=== PATIENT | male | born 1955 | race Caucasian/White ===

== ENCOUNTER → 2016-08-17 | Outpatient (CLI) | payer BC, OTHER ==
--- NOTE | 2016-08-17 22:58 | DI ---
MRI LUMBAR SPINE SCAN WITHOUT IV CONTRAST, 08/17/2016 1:41 PM: Clinical History: Low back pain. Previous Exam: 10/01/2006. Technique: Sagittal and axial T2 weighted; sagittal T1 weighted and T2 STIR; and axial PD. The vertebral bodies are of normal height and size. There is severe disc space narrowing at L5-S1 wit h moderately severe narrowing between L2-3 and L4-5. The L1-2 disc space is normal in height. The cor d terminates at L1, and the conus medullaris is normal. There are bulging but not herniated discs wit hout canal or neural foraminal stenosis from T10-11 through T12-L1. The L1-2 disc space is normal. L2 -3 has a circumferentially bulging but not herniated disc without canal or significant neural foramin al stenosis. There is increased signal intensity consistent with edema of the left superior and poste rolateral margin of the L3 vertebral body without evidence of a fracture. There is also intermediate signal intensity in the posterior and inferior half of the L2 vertebral body that may represent resol ving edema. Because this is at the L2-3 disc space, there may be motion at this level. L3-4 through L 5-S1 all show circumferentially bulging but not herniated discs without canal or significant neural f oraminal stenosis. Mild degenerative arthritic changes are present in the apophyseal joints at L4-5 a nd L5-S1. Readin. There are bulging but not herniated discs without canal or significant neural foraminal stenosis from T10-11 through T12-L1 and from L2-3 through L5-S1. Hyperintensity changes are present in the ling tebral bodies of L2 and L3 at the L2-3 disc space suggesting edema. The possibility of instability at the L2-3 disc space is raised, and upright lateral flexion and extension views may demonstrate this suspected instability. 2. The L1-2 disc space is normal.
== END ==
LOC: MRI 13:37
PROVIDERS: ATTEND Chiropractor
DX: M54.5 Low back pain (principal); M47.814 Spondylosis without myelopathy or radiculopathy, thoracic region; M47.816 Spondylosis without myelopathy or radiculopathy, lumbar region
CPT/HCPCS: 72148

== ENCOUNTER 2016-09-15 14:00 | Emergency (ER) | payer BC, OTHER ==
[2016-09-15 14:29] VITALS: RESP 19; TEMP 96.7
--- NOTE | 2016-09-15 14:42 | PDOC ---
Skin Rash/Insect/Abscess HPI - General Chief Complaint: Laceration / Wound Stated Complaint: PUNCTURE WOUND TO RIGHT THIGH WITH BRAKE LININGS COATER Date Seen by Provider: 09/15/16 Time Seen by Provider: 14:36 Source: POSITIVE: Patient, Spouse Exam Limitations: POSITIVE: No limitations Nurse's Notes Reviewed & Considered: Yes - History of Present Illness Initial Comments: Patient was opening a box with a boxcar weigher when he is medial beside it and stabbed boxcar weigher into his right knee. His bleeding he attempted to stop it with pressure was unsuccessful, then used flour and direct pressure with a bandage and came in for evaluation. Have you received a tetanus shot in the past 10 years?: Yes Body Location Affected: REPORTS: Lower Extremity (R) Timing: REPORTS: Abrupt Duration: 1 hour Severity: Mild Identified Causes: REPORTS: Yes When Exposed: REPORTS: Just Prior to Sx Onset Where Exposed: REPORTS: Work Suspected Etiology: REPORTS: Other (laceration) Similar Symptoms Previously: No Recent Care Received: REPORTS: Denies Any Prior Injuries Related to Current Complaint?: No - Patient Home Medications Home Medications: Home Medications Aspirin [Aspir 81] 81 mg PO DAILY 12/18/10 Blood-Glucose Meter [One Touch Verio Iq] 1 each MC QID #1 each 11/22/13 Blood Sugar Diagnostic [Glucose Test Strip] 1 each IN BID #180 ea 04/15/15 Lisinopril [Zestril] 1 tab PO DAILY #90 tab 02/20/16 Omeprazole 1 cap PO BID #180 cap 02/20/16 Simvastatin 1 tab PO QHS #90 tab 05/27/16 Glipizide/Metformin HCl [Glipizide-Metformin 5-500 Mg] 2 tab PO BID #180 tab 11/15 - Patient Allergies Allergies/Adverse Reactions: Allergies Allergy/AdvReac Type Severity Reaction Status Date / Time sitagliptin phosphate Allergy Intermediate DIFFICULTY Verified 09/15/16 14:15 [From Jose] SWALLOWING Past Medical History - heen HEENT History: Other (please comment) Additional HEENT History: NO TEETH Cardiovascular History: Hypertension, Hyperlipidemia Respiratory History: Denies History Gastrointestinal History: GERD Genitourinary History: Denies History Endocrine History: Type 2 Diabetes (oral) Musculoskeletal History: Arthritis, Other (please comment) Prosthesis or Implant: No Additional Musculoskeletal History: BROKE LEFT ELBOW CHILD. FELL APART COUPLE YRS AGO AND WAS FUSED (DEFORMITY BUT FUNCTIONS) Neurological History: Other (please comment) Additional Neurological History: POSSIBLE STROKE IN JANUARY OF 2016 Blood Disorders: Denies History Psychiatric History: Denies History History of Sexually Transmitted Diseases: No Cancer History: Denies History In Past Year Been Physically Harmed or Verbally Threatened: No (PER PATIENT) History of MDRO: No History of Other Communicable Diseases: No Tobacco Use: Current Every Day Smoker Alcohol Use: None Substance Use Type: None Previous Surgical History: Yes Type / Date of Surgery: CHILD / LEFT ELBOW Anesthesia Reactions: No Malignant Hyperthermia: No Family History of Malignant Hyperthermia: No Significant Family History: No pertinent family hx ROS - Limitations ROS Limitations: No Limitations Constitution: REPORTS: Denies Symptoms Cardiovascular: REPORTS: Denies Cardiac Symptoms Respiratory: REPORTS: Denies Resp Symptoms Neurological: REPORTS: Denies Neuro Symptoms Gastrointestinal: REPORTS: Denies GI Symptoms Endocrine: REPORTS: Denies Symptoms Musculoskeletal: REPORTS: Denies MS Symptoms Genitourinary: REPORTS: Denies Symptoms Eyes: REPORTS: Denies Symptoms ENT: REPORTS: Denies Symptoms Skin: REPORTS: Other (1.5 cm lac R knee) Lympathic: REPORTS: Denies Lympathic Symptoms Immunologic: POSITIVE: Denies Symptoms Psychiatric: POSITIVE: Denies Psych Symptoms Skin Rash/Insect/Abscess Exam - General Appearance General Appearance: REPORTS: Alert, Cooperative, No Acute Distress, No Evidence of Trauma - Skin Skin: REPORTS: Warm, Dry, Normal Color, Other (1.5 cm lac R knee) Skin Location: REPORTS: Generalized Skin Character: REPORTS: Symmetric - Extremities Extremity: Non-Tender: (All Extremities), Normal ROM: (All Extremities), Normal Inspection: (All Extremities) Procedures - Laceration/Wound Repair Did patient have a laceration repair: Yes Site of Laceration/Wound: R. knee Wound Length (cm): 1.5 Wound's Depth, Shape: Into subcutaneous tissue Time of Suture Placement:: 14:41 Distal CMS: Yes Skin Prep: Other (Alcohol) Wound Explored: Clean Wound Debrided: Minimal Wound Repaired With: Faisal Number of [place]: 3 Skin Rash/Abscess Progress - Patient's Progress Status: POSITIVE: Improved MDM / ED Course: Patient was examined. Skin around the wound was cleaned with alcohol, 3 surgical faisal were applied with good skin edge reapproximation and good hemostasis patient tolerated this well. He declined anesthesia for staple placement. He is discharged home with instructions to return in a week for staple removal. - Consult Counseled: POSITIVE: Patient, Family, RE: DX, RE: Need for F/U Patient Care Time - Estimated PCT Patient Care Time (In Minutes): 10 Vital Signs - Recent Vital Signs Vital Signs: Vital Signs (Last 8 hours) Temp Pulse Resp BP Pulse Ox 09/15/16 14:00 96.7 F L 107 H 19 149/101 99 - VS Reviewed Vital Signs Reviewed: Yes Discharge Clinical Impression: Laceration - injury Discharge Disposition: Discharged to Home Condition: Good Patient Instructions Given at Discharge: Laceration (ED)
== END 2016-09-15 14:55 | disposition home or self-care (01) ==
LOC: ER 14:00
DX: S81.011A Laceration without foreign body, right knee, initial encounter (principal); W26.0XXA Contact with knife, initial encounter
CPT/HCPCS: 12001; 99282

== ENCOUNTER → 2016-11-05 | Outpatient (CLI) | payer BC, OTHER ==
--- NOTE | 2016-11-05 10:18 | DI ---
DUPLEX COLOR DOPPLER CAROTID ULTRASOUND, 11/05/2016 7:56 AM: Clinical History: Stroke like symptoms. Previous Exam: None at this facility. Technique: 2D real time imaging is supplemented with duplex color doppler ultrasound imaging. RIGHT CAROTID ARTERY: 2D real time imaging of the right carotid system shows minimal intimal thickening in the common carot id artery with noncalcified small plaques in the anterior and posterior portions of the carotid bulb. The external carotid artery has a normal appearance and there is some intimal thickening at the orig in of the internal carotid artery. Peak systolic velocities through the right common carotid, the ext ernal carotid, and the internal carotid are 133 cm/s, 82 cm/s, and 81 cm/s, respectively. The values for the external and internal carotid arteries correspond to diameter stenoses of 0-49%. The value fo r the common carotid artery corresponds to a diameter stenosis between 50-74%, but much closer to 50% . LEFT CAROTID ARTERY: 2D real time imaging of the left carotid system shows minimal intimal thickening of the left common c arotid artery with a small calcified plaque in the carotid bulb. The left internal and external carot id arteries are normal. Peak systolic velocities through the left common carotid, the external caroti d, and the internal carotid are 154 cm/s, 133 cm/s, and 74 cm/s, respectively. The values for the lef t common carotid artery and the external carotid artery correspond to diameter stenoses of 50-74%, bu t closer to 50%. The value for the left internal carotid artery corresponds to a diameter stenosis of 0-49%. VERTEBRAL ARTERIES: There is antegrade flow through both vertebral arteries Cardiac rhythm is regular. Peak systolic [place] through the visualized portions of the right and left vertebral arteries are 42 cm/s and and a lso 42 cm/s, respectively. Readin. There is no hemodynamically significant stenosis of either carotid system. 2. There is antegrade flow through both vertebral arteries. Cardiac rhythm is regular.
== END ==
LOC: US 07:51
PROVIDERS: ATTEND Family Medicine
DX: R29.90 Unspecified symptoms and signs involving the nervous system (principal); E11.9 Type 2 diabetes mellitus without complications; E78.5 Hyperlipidemia, unspecified; F17.210 Nicotine dependence, cigarettes, uncomplicated
CPT/HCPCS: 93880

== ENCOUNTER 2016-11-30 10:34 | Emergency (ER) | payer BC, OTHER ==
[2016-11-30 10:44] VITALS: RESP 16; TEMP 96.3
[2016-11-30] MEDS ORDERED: NORMAL SALINE 10 ML SYRINGE FLUSH IVP PRN (10:54)
[2016-11-30] MEDS ORDERED: Sodium Chloride 0.9% 1,000 ML PRIMARY IV ONE (10:54)
[2016-11-30 11:12] LABS: BASOPHILS # (AUTO) 0.06 10*3/UL; BASOPHILS % (AUTO) 0.5 % (0-1); EOSINOPHILS # (AUTO) 0.07 10*3/UL; EOSINOPHILS % (AUTO) 0.6 % (0-8); HEMATOCRIT 45.3 % (42.0-52.0); HEMOGLOBIN 15.2 g/dL (14.0-18.0); LYMPHOCYTES # (AUTO) 1.96 10*3/uL; MEAN CORPUSCULAR HEMOGLOBIN 28.6 PG (27-31); MEAN CORPUSCULAR HGB CONC 33.6 g/dL (33-37); MEAN CORPUSCULAR VOLUME 85.3 FL (80-90); MEAN PLATELET VOLUME 8.5 FL (7.4-12.2); MONOCYTES # (AUTO) 0.82 10*3/UL (0.3-0.8); MONOCYTES % (AUTO) 7.3 % (5-15); NEUTROPHILS # (AUTO) 8.29 10*3/UL; NEUTROPHILS % (AUTO) 73.8 % (50-80); RED BLOOD COUNT 5.31 10^6/uL (4.70-6.10)
[2016-11-30 11:14] LABS: BILIRUBIN,URINE NEGATIVE (NEG); COLOR,URINE YELLOW; NITRATE,URINE NEGATIVE (NEG); OCCULT BLOOD,URINE NEGATIVE (NEG); PH,URINE 5.5 (5.0-8.5); PLATELET MORPHOLOGY COMMENT NORMAL MORPHOLOGY (NORM); PROTEIN,URINE NEGATIVE (NEG); RBC MORPHOLOGY COMMENT NORMAL MORPHOLOGY (NORM); UROBILINOGEN,URINE 0.2 EU/dL (0.2); WBC MORPHOLOGY COMMENT NORMAL MORPHOLOGY (NORM)
[2016-11-30 11:20] LABS: BLOOD UREA NITROGEN 15 mg/dL (7-22); BUN/CREATININE RATIO 21.42 (6-20); CALCIUM 9.6 mg/dL (8.7-10.7); EST GLOMERULAR FILTRATION > 60 (>60 ml/min/1.73m(2)); LIPASE 47 IU/L (23-300); SERUM ALBUMIN 4.3 g/dL (3.5-4.8)
[2016-11-30 11:32] LABS: CLARITY,URINE CLEAR (CLEAR); GLUCOSE, URINE (UA) >=1000 mg/dL (NEG); URINE SAMPLE TYPE CLEAN CATCH URINE
--- NOTE | 2016-11-30 12:51 | DI ---
CT ABD W/CN AND PELVIS W/CN,11/30/2016 10:55 AM: Clinical History: Abdominal pain Previous Exam: None at this facility. Findings: Multiple helically acquired CT images are obtained through the abdomen and pelvis following the intra venous administration of 75 cc of Isovue 300, and demonstrates clear lung bases. There is mild diffuse fatty infiltration of the liver. There are multiple hypodense masses too jacqui us to count which do not appear to represent simple cysts. There are a few layering stones within the gallbladder. The spleen, adrenals, kidneys and pancreas are unremarkable. The urinary bladder is unremarkable. There is a trace amount of free fluid within the deep pelvis. Moderate stool is seen throughout the distal colon. Adjacent to the transverse colon anteriorly, ther e is an isodense mass with surrounding fat stranding abutting the left anterior abdominal wall. Mild degenerative changes of the spine are seen. There is no subdiaphragmatic free air. The stomach is not well evaluated as it is decompressed. There is a single renal parenchymal stone wi thin the inferior pole the left kidney. Impression: 1. Multiple hepatic hypodensities too numerous to count. These are worrisome for metastatic disease. 2. Isodense mass within the anterior mesentery of the left upper quadrant measuring 5.5 cm in diamete r. This could represent an inflammatory condition. This could also represent malignancy. Consider ult rasound-guided biopsy.
--- NOTE | 2016-11-30 13:24 | DI ---
US ABDOMEN LIMITED,11/30/2016 12:36 PM: Clinical History: Abnormal mass within the left anterior abdominal wall. Previous Exam: None at this facility. Findings: Multiple man scale and color Doppler sonographic images are obtained through the mass in question in the left upper abdomen. This mass measures 5.8 x 5.0 x 3.6 cm without any cystic areas. This is isoe choic to the adjacent musculature and mesenteric fat. Impression: Abnormal mass seen on CT corresponds with a solid isoechoic 5.8 x 5.0 x 3.6 cm mass.
--- NOTE | 2016-11-30 16:15 | PDOC ---
Abdomen/Flank HPI - General Chief Complaint: General Medical Stated Complaint: FELT POP IN LEFT SIDE Date Seen by Provider: 11/30/16 Time Seen by Provider: 10:35 Source: POSITIVE: Patient, Spouse, RN/MD Exam Limitations: POSITIVE: No limitations Nurse's Notes Reviewed & Considered: Yes - History of Present Illness Initial Comments: The patient is a 61-year-old male who presents to the emergency room ambulatory with his . Patient states that for the past 2-3 weeks he's had some discomfort in the left upper abdominal area and left paraumbilical area. He describes the discomfort as "like an ache or pulled muscle". He states that his discomfort became somewhat worse last night, and especially over the past 3 hours. Past medical history is significant in that patient has a history of skin cancer, and his states that she believes the type of skin cancer is squamous cell carcinoma. He recently has had a skin lesion excised from the right side of his scalp. 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 History of type II diabetes mellitus and hypertension. Patient has not had any abdominal surgery. Patient denies any recent fevers or chills, melena, hematochezia, hematemesis, dysuria, hematuria, nausea, vomiting or diarrhea. Body Location Affected: REPORTS: Abdomen Timing: REPORTS: Gradual, Getting Worse Duration: >1 week (For the past 2-3 weeks) Severity: Moderate Quality: REPORTS: "Pain" Abdominal Pain Onset Location: REPORTS: LUQ, Periumbilical (Left) Abdominal Pain Radiation: REPORTS: No radiation Context: REPORTS: None Modifying Factors: improves with: Movement (Sometimes exacerbated by portion of his torso) Associated Symptoms: REPORTS: Denies symptoms Similar Symptoms Previously: No Recent Care Received: REPORTS: Recently Seen, Treated by MD, Surgery (Recent excision of skin cancer from the right side of his head, probably squamous cell carcinoma, according to .) Any Prior Injuries Related to Current Complaint?: No - Patient Home Medications Home Medications: Home Medications Aspirin [Aspir 81] 81 mg PO DAILY 12/18/10 Lisinopril [Zestril] 1 tab PO DAILY #90 tab 02/20/16 Simvastatin 1 tab PO QHS #90 tab 05/27/16 Blood Sugar Diagnostic [Contour Next] 1 each MC TID #180 strip 10/21/16 Blood-Glucose Meter [Contour Next] 1 each MC TID #1 each 10/21/16 Clif[place], Insulin Disposable [Clifton] 1 each MC TID #180 unit 10/21/16 Loratadine [Claritin] 1 tab PO DAILY tab 11/04/16 Triamcinolone Acetonide 15 gm TOPICAL TID PRN tube 11/04/16 Dapagliflozin Propanediol [Farxiga] 10 mg PO QD #30 tab 11/09/16 Esomeprazole Magnesium 1 cap PO QD #90 cap 11/09/16 Metformin HCl 1 tab PO BID #180 tab 11/09/16 Pioglitazone HCl [Actos] 15 mg PO DAILY #90 tab 11/09/16 Potassium 99 mg PO DAILY 11/30/16 - Patient Allergies Allergies/Adverse Reactions: Allergies Allergy/AdvReac Type Severity Reaction Status Date / Time sitagliptin phosphate Allergy Intermediate DIFFICULTY Verified 11/30/16 10:41 [From Jose] SWALLOWING/TONGUE SWELLING Past Medical History - heen HEENT History: Other (please comment) Additional HEENT History: NO TEETH Cardiovascular History: Hypertension, Hyperlipidemia Respiratory History: Denies History Gastrointestinal History: GERD Genitourinary History: Denies History Endocrine History: Type 2 Diabetes (oral) Musculoskeletal History: Arthritis, Other (please comment) Prosthesis or Implant: No Additional Musculoskeletal History: BROKE LEFT ELBOW CHILD. FELL APART COUPLE YRS AGO AND WAS FUSED (DEFORMITY BUT FUNCTIONS) Neurological History: Other (please comment) Additional Neurological History: POSSIBLE STROKE IN JANUARY OF 2016 Blood Disorders: Denies History Psychiatric History: Denies History History of Sexually Transmitted Diseases: No Cancer History: Denies History In Past Year Been Physically Harmed or Verbally Threatened: No History of MDRO: No History of Other Communicable Diseases: No Tobacco Use: Current Every Day Smoker Alcohol Use: None Substance Use Type: None Previous Surgical History: Yes Type / Date of Surgery: CHILD / LEFT ELBOW. NASAL SURGERY Anesthesia Reactions: No Malignant Hyperthermia: No Significant Family History: No pertinent family hx Past Medical History Reviewed: Reviewed - No Changes ROS - Limitations ROS Limitations: No Limitations Constitution: REPORTS: Denies Symptoms Cardiovascular: REPORTS: Denies Cardiac Symptoms Respiratory: REPORTS: Denies Resp Symptoms Neurological: REPORTS: Denies Neuro Symptoms Gastrointestinal: REPORTS: Abdominal Pain Endocrine: REPORTS: Denies Symptoms Musculoskeletal: REPORTS: Denies MS Symptoms Genitourinary: REPORTS: Denies Symptoms Eyes: REPORTS: Denies Symptoms ENT: REPORTS: Denies Symptoms Skin: REPORTS: Skin Lesions (Site of excision his skin lesion, reportedly squamous cell carcinoma, right upper scalp. Patient has a dressing over side of excision. No signs of infection) Lympathic: REPORTS: Denies Lympathic Symptoms Immunologic: POSITIVE: Denies Symptoms Psychiatric: POSITIVE: Denies Psych Symptoms Abdominal/Flank Pain PE - General Appearance General Appearance: POSITIVE: Alert, Cooperative, No Acute Distress, No Evidence of Trauma - HEENT HEENT: POSITIVE: Eyes Inspection Nml, Ears Inspection Nml, Nose Inspection Nml, Oral/Dental Inspect. Nml, Pharynx Inspect. Nml, PERRL, EOMI. NEGATIVE: Head Inspection Nml (Site of excision of skin lesion right upper scalp) - Neck Neck: POSITIVE: Normal Inspection, No Apparent Injury - Respiratory Respiratory: POSITIVE: No Respiratory Distress, Breath Sounds Normal, Chest Non- Tender - Cardiovascular Cardiovascular: POSITIVE: Regular Rate and Rhythm, Heart Sounds Normal, Equal Pulses, Strong Pulses Peripheral Pulses: Radial (R): 2+, Radial (L): 2+ - Chest Chest: POSITIVE: Non Tender - Abdomen Abdomen: Soft: (All Quadrants), Normal Bowel Sounds: (All Quadrants), Denies Tenderness: (LLQ), (RLQ), (RUQ), No Splenomegaly: (All Quadrants), No Hepatomegaly: (All Quadrants), No Guarding: (All Quadrants), No Rebound: (All Quadrants), No Palpable Pulse: (All Quadrants), No Palpabale Mass: (All Quadrants), No Distention: (All Quadrants), No Rigidity: (All Quadrants), Tenderness Noted: (LUQ) (mild) Additional Abdominal Details: Abdominal examination shows bowel sounds to be active. Patient indicates abdominal discomfort left upper abdomen and left paraumbilical area. Abdomen is soft. Patient does complain of some mild exacerbation of his discomfort on firm deep direct palpation of the left upper quadrant and left paraumbilical area. No masses or organomegaly or rebound. - Back Back: POSITIVE: Normal Inspection. 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 There are also multiple hypodense lesions in the liver concerning for metastatic disease. Ultrasound of the left upper abdominal area shows a 5.8 x 5.0 x 3.6 cm mass without any cystic areas. This mass is isoechoic to the adjacent musculature and mesenteric fat. Lab Results Reviewed: Yes Lab Results:: Laboratory Results 11/30/16 Range/Units 11:04 WBC 11.23 H (4.8-10.8) 10^3/uL RBC 5.31 (4.70-6.10) 10^6/uL Hgb 15.2 (14.0-18.0) g/dL Hct 45.3 (42.0-52.0) % MCV 85.3 (80-90) FL MCH 28.6 (27-31) PG MCHC 33.6 (33-37) g/dL RDW Std Deviation 41.6 (39-50) fL RDW Coeff of [place] 13.4 (11.5-14.5) % Plt Count 331 (140-350) 10*3/uL MPV 8.5 (7.4-12.2) FL Immature Gran % (Auto) 0.3 (0-5) % Neut % (Auto) 73.8 (50-80) % Lymph % (Auto) 17.5 (10-50) % [place] % (Auto) 7.3 (5-15) % Eos % (Auto) 0.6 (0-8) % Baso % (Auto) 0.5 (0-1) % Immature Gran # (Auto) 0.03 10*3/UL Neut # (Auto) 8.29 10*3/UL Lymph # (Auto) 1.96 10*3/uL [place] # (Auto) 0.82 H (0.3-0.8) 10*3/UL Eos # (Auto) 0.07 10*3/UL Baso # (Auto) 0.06 10*3/UL WBC Morphology Comment Normal morphology (NORM) Plt Morphology Comment Normal morphology (NORM) RBC Morph Comment Normal morphology (NORM) Sodium 135 (135-145) meq/L Potassium 4.7 (3.8-5.2) meq/L Chloride 101 (98-112) meq/L Carbon Dioxide 20 L (23-33) meq/L Anion Gap 14 (5-20) BUN 15 (7-22) mg/dL Creatinine 0.7 (0.70-1.50) mg/dL Estimated GFR > 60 (>60 ml/min/1.73m(2)) BUN/Creatinine Ratio 21.42 H (6-20) Glucose 160 H (78-110) mg/dL Calculated Osmolality 283.0 (267-292) mOsm/kg Calcium 9.6 (8.7-10.7) mg/dL Total Bilirubin 0.6 (0.3-1.2) mg/dL AST 23 (21-57) IU/L ALT 40 (21-72) IU/L Alkaline Phosphatase 126 (38-126) IU/L Total Protein 7.8 (6.1-8.0) g/dL Albumin 4.3 (3.5-4.8) g/dL Globulin 3.5 (2.50-4.10) g/dL Albumin/Globulin Ratio 1.20 L (1.3-2.0) mg/g Amylase 43 (30-110) U/L Lipase 47 (23-300) IU/L Ur Collection Type Clean catch urine Urine Color Yellow Urine Clarity Clear (CLEAR) Urine pH 5.5 (5.0-8.5) Ur Specific [place] 1.021 (1.005-1.030) Urine Protein Negative (NEG) mg/dl Urine Glucose (UA) >=1000 (NEG) mg/dL Urine Ketones 15 (NEG) Urine Occult Blood Negative (NEG) Urine Nitrate Negative (NEG) Urine Bilirubin Negative (NEG) Urine Urobilinogen 0.2 (0.2) EU/dL Ur Leukocyte Esterase Negative (NEG) Ur Culture Indicated? Culture not set - Patient's Progress Pain Medication Addressed: POSITIVE: Yes (Patient presently taking Tylenol. Declines any other analgesia.), Patient Refused Re-examine Time: 13:45 Re-Examine Comment: Results of CT scan of abdomen and pelvis and limited abdominal ultrasound discussed with patient and his . I advised both that I am concerned that the abdominal mass may represent a malignancy, possibly secondary to his squamous cell carcinoma of the skin. I discussed these findings with the patient's primary care provider, Dr. Terrazas, and patient will follow-up with him for further evaluation, treatment and referral. Advised patient that he will probably have to have a ultrasound graphically guided needle biopsy. Status: POSITIVE: Unchanged, Re-Examined - Consult Consult (If Yes, Name of Consulting MD & Time Called): Yes (Dr. Terrazas, patient's primary physician, [id number].) Consulting MD will see pt:: POSITIVE: In Office Counseled: POSITIVE: Patient, Family, RE: Lab Results, RE: Radiology Results, RE : DX, RE: Need for F/U Patient Care Time - Estimated PCT Patient Care Time (In Minutes): 65 Vital Signs - Recent Vital Signs Vital Signs: Vital Signs (Last 8 hours) Temp Pulse Resp BP Pulse Ox 11/30/16 14:05 79 16 98/54 96 11/30/16 10:40 96.3 F L 115 H 16 160/104 96 - VS Reviewed Vital Signs Reviewed: Yes Discharge Clinical Impression: Abdominal mass, left upper quadrant Discharge Disposition: Discharged to Home Condition: Stable Patient Instructions Given at Discharge: Soft Tissue Mass (ED) Additional Instructions: You have a mass in the left upper part of your abdomen. This is probably what has been causing you your abdominal pain. I am concerned that this mass might represent a cancer, possibly a metastatic lesion due to your squamous cell carcinoma of the skin. You need to have this followed up. I spoke with Dr. Terrazas, your primary care provider. Please make an appointment with him as soon as possible so that he can coordinate your further evaluation and treatment. You will need to have this mass biopsied. Please continue Tylenol for discomfort. Return here anytime if your condition worsens in any way, or if we keep be of any further service whatsoever. Follow Up With: ANITRA TERRAZAS [Primary Care Provider] - (Follow-up with Dr. Terrazas for further evaluation and treatment. Return here anytime if condition worsens in any way.)
== END 2016-11-30 14:06 | disposition home or self-care (01) ==
LOC: ER 10:34
DX: R19.02 Left upper quadrant abdominal swelling, mass and lump (principal); E11.9 Type 2 diabetes mellitus without complications; I10 Essential (primary) hypertension
CPT/HCPCS: 74177; 76705; 80053; 81003; 82150; 83690; 85025; 96360; 96361; 99283; J7030

== ENCOUNTER → 2016-12-01 | Outpatient (CLI) | payer BC, OTHER | LOC: LAB 09:39 | PROVIDERS: ATTEND Radiology Diagnostic Radiology | DX: Z01.812 Encounter for preprocedural laboratory examination (principal); R10.84 Generalized abdominal pain | CPT/HCPCS: 36415; 82565; 84520 ==

== ENCOUNTER → 2016-12-03 | Outpatient (CLI) | payer BC, OTHER | LOC: US 14:48 | PROVIDERS: ATTEND Family Medicine | DX: R19.02 Left upper quadrant abdominal swelling, mass and lump (principal); Z85.828 Personal history of other malignant neoplasm of skin | CPT/HCPCS: 76942 ==

== ENCOUNTER 2016-12-29 15:55 | Emergency (ER) | payer BC, OTHER ==
[2016-12-29] MEDS ORDERED: NORMAL SALINE 10 ML SYRINGE FLUSH IVP PRN (16:09)
[2016-12-29] MEDS ORDERED: Sodium Chloride 0.9% 1,000 ML PRIMARY IV ONE ×3 (16:10→21:06)
[2016-12-29] MEDS: ONDANSETRON 4 MG/2 ML VIAL IVP ONE ×2 (16:10→17:30)
[2016-12-29 16:27] LABS: BASOPHILS # (AUTO) 0.05 10*3/UL; BASOPHILS % (AUTO) 0.3 % (0-1); EOSINOPHILS # (AUTO) 0.01 10*3/UL; EOSINOPHILS % (AUTO) 0.1 % (0-8); HEMATOCRIT 38.5 % (42.0-52.0); HEMOGLOBIN 12.8 g/dL (14.0-18.0); LYMPHOCYTES # (AUTO) 1.56 10*3/uL; MEAN CORPUSCULAR HEMOGLOBIN 28.1 PG (27-31); MEAN CORPUSCULAR HGB CONC 33.2 g/dL (33-37); MEAN CORPUSCULAR VOLUME 84.4 FL (80-90); MEAN PLATELET VOLUME 8.7 FL (7.4-12.2); MONOCYTES # (AUTO) 1.05 10*3/UL (0.3-0.8); MONOCYTES % (AUTO) 5.9 % (5-15); NEUTROPHILS # (AUTO) 14.96 10*3/UL; NEUTROPHILS % (AUTO) 84.4 % (50-80); RED BLOOD COUNT 4.56 10^6/uL (4.70-6.10)
[2016-12-29 16:30] LABS: PLATELET MORPHOLOGY COMMENT NORMAL MORPHOLOGY (NORM); RBC MORPHOLOGY COMMENT NORMAL MORPHOLOGY (NORM); WBC MORPHOLOGY COMMENT NORMAL MORPHOLOGY (NORM)
[2016-12-29 16:37] LABS: BLOOD UREA NITROGEN 35 mg/dL (7-22); CALCIUM 11.2 mg/dL (8.7-10.7); EST GLOMERULAR FILTRATION > 60 (>60 ml/min/1.73m(2))
--- NOTE | 2016-12-29 16:51 | PDOC ---
Nausea/Vomiting/Diarrhea HPI - General Chief Complaint: Nausea / Vomiting / Diarrhea Stated Complaint: BLACK VOMIT Date Seen by Provider: 12/29/16 Time Seen by Provider: 16:30 - History of Present Illness Initial Comments: This patient is a unfortunate 61-year-old gentleman who was diagnosed with a metastatic squamous cell lung cancer about 2 weeks ago. He came in the emergency department at that time complaining about abdominal pain and had a CT scan performed which showed a sided abdominal mass. His mass was biopsied and also a nonhealing sore in the posterior aspect of his head was taken care of subsequently by a roll wrapper in the show metastatic lung cancer. He started radiation therapy for this abdominal mass for paliation about 7-10 days ago and has been doing okay. Unfortunately today started to develop some vomiting with black emesis. He came to the emergency department and clearly had coffee- ground emesis that was heme positive. He had not been having any stool over last couple days had not been able to eat anything over last couple of days as well and had substantial abdominal pain... - Patient Home Medications Home Medications: Home Medications Aspirin [Aspir 81] 81 mg PO DAILY 12/18/10 Lisinopril [Zestril] 1 tab PO DAILY #90 tab 02/20/16 Simvastatin 1 tab PO QHS #90 tab 05/27/16 Blood Sugar Diagnostic [Contour Next] 1 each MC TID #180 strip 10/21/16 Blood-Glucose Meter [Contour Next] 1 each MC TID #1 each 10/21/16 Chana, Insulin Disposable [Chana] 1 each MC TID #180 unit 10/21/16 Loratadine [Claritin] 1 tab PO DAILY tab 11/04/16 Triamcinolone Acetonide 15 gm TOPICAL TID PRN tube 11/04/16 Dapagliflozin Propanediol [Farxiga] 10 mg PO QD #30 tab 11/09/16 Esomeprazole Magnesium 1 cap PO QD #90 cap 11/09/16 Metformin HCl 1 tab PO BID #180 tab 11/09/16 Potassium 99 mg PO DAILY 11/30/16 Pioglitazone HCl [Actos] 15 mg PO BID #180 tab 12/03/16 Tramadol HCl 2 tab PO Q4-6H #90 tab 12/03/16 Bupropion HCl [Wellbutrin Sr] 1 tab PO BID #60 tab 12/10/16 Fentanyl 12 mcgh TRANSDERM Q72H #1 box 12/10/16 - Patient Allergies Allergies/Adverse Reactions: Allergies Allergy/AdvReac Type Severity Reaction Status Date / Time sitagliptin phosphate Allergy Intermediate DIFFICULTY Verified 12/29/16 16:25 [From Jose] SWALLOWING/TONGUE SWELLING codeine AdvReac Intermediate ALT MENTAL Verified 12/29/16 16:25 STATUS Past Medical History - heen HEENT History: Other (please comment) Additional HEENT History: NO TEETH Cardiovascular History: Hypertension, Hyperlipidemia Respiratory History: Denies History Gastrointestinal History: GERD Genitourinary History: Denies History Endocrine History: Type 2 Diabetes (oral) Musculoskeletal History: Arthritis, Other (please comment) Prosthesis or Implant: No Additional Musculoskeletal History: BROKE LEFT ELBOW CHILD. FELL APART COUPLE YRS AGO AND WAS FUSED (DEFORMITY BUT FUNCTIONS) Neurological History: Other (please comment) Additional Neurological History: POSSIBLE STROKE IN JANUARY OF 2016 Blood Disorders: Denies History Psychiatric History: Denies History History of Sexually Transmitted Diseases: No Cancer History: Denies History History of MDRO: No History of Other Communicable Diseases: No Alcohol Use: None Substance Use Type: None Previous Surgical History: Yes Type / Date of Surgery: CHILD / LEFT ELBOW. NASAL SURGERY Anesthesia Reactions: No Malignant Hyperthermia: No Significant Family History: No pertinent family hx Past Medical History Reviewed: Reviewed - No Changes ROS - Limitations ROS Limitations: No Limitations Constitution: REPORTS: Weakness Cardiovascular: REPORTS: Denies Cardiac Symptoms Respiratory: REPORTS: Denies Resp Symptoms Neurological: REPORTS: Denies Neuro Symptoms Endocrine: REPORTS: Fatigue Nausea/Vomiting/Diarrhea Exam - General Appearance General Appearance: POSITIVE: Alert, Cooperative, No Acute Distress - HEENT HEENT: POSITIVE: Head Inspection Nml, Eyes Inspection Nml, Ears Inspection Nml - Respiratory Respiratory: POSITIVE: Breath Sounds Normal - Cardiovascular Cardiovascular: POSITIVE: Regular Rate and Rhythm, Heart Sounds Normal - Abdomen Additional Abdominal Details: Patient has some tinkling bowel sounds he also has substantial abdominal pain diffusely with palpation but more so in the left midabdomen. NG tube is in place and there is coffee-ground and dark maroon appearing fluid being aspirated. - Neurological / Psychological Neurological: POSITIVE: Affect Apporpriate, Oriented X3 N/V/D Progress - Results Reviewed by me Xrays/CTs/US Reviewed by me: Yes Radiology Findings: Small bowel obstruction and multiple evidence of metastasis Lab Results:: Laboratory Results 12/29/16 12/29/16 12/29/16 Range/Units 16:20 17:31 20:46 WBC 17.71 H (4.8-10.8) 10^3/uL RBC 4.56 L (4.70-6.10) 10^6/uL Hgb 12.8 L 11.6 L (14.0-18.0) g/dL Hct 38.5 L 34.9 L (42.0-52.0) % MCV 84.4 (80-90) FL MCH 28.1 (27-31) PG MCHC 33.2 (33-37) g/dL RDW Std Deviation 40.4 (39-50) fL RDW Coeff of Celeste 13.4 (11.5-14.5) % Plt Count 541 H (140-350) 10*3/uL MPV 8.7 (7.4-12.2) FL Immature Gran % (Auto) 0.5 (0-5) % Neut % (Auto) 84.4 H (50-80) % Lymph % (Auto) 8.8 L (10-50) % Tyler % (Auto) 5.9 (5-15) % Eos % (Auto) 0.1 (0-8) % Baso % (Auto) 0.3 (0-1) % Immature Gran # (Auto) 0.08 10*3/UL Neut # (Auto) 14.96 10*3/UL Lymph # (Auto) 1.56 10*3/uL Tyler # (Auto) 1.05 H (0.3-0.8) 10*3/UL Eos # (Auto) 0.01 10*3/UL Baso # (Auto) 0.05 10*3/UL WBC Morphology Comment Normal morphology (NORM) Plt Morphology Comment Normal morphology (NORM) RBC Morph Comment Normal morphology (NORM) Sodium 134 L (135-145) meq/L Potassium 5.1 (3.8-5.2) meq/L Chloride 95 L (98-112) meq/L Carbon Dioxide 24 (23-33) meq/L Anion Gap 15 (5-20) BUN 35 H (7-22) mg/dL Creatinine 1.0 (0.70-1.50) mg/dL Estimated GFR > 60 (>60 ml/min/1.73m(2)) BUN/Creatinine Ratio 35.00 H (6-20) Glucose 262 H (78-110) mg/dL Calculated Osmolality 294.0 H (267-292) mOsm/kg Calcium 11.2 H (8.7-10.7) mg/dL Total Bilirubin 0.5 (0.3-1.2) mg/dL AST 30 (21-57) IU/L ALT 49 (21-72) IU/L Alkaline Phosphatase 265 H (38-126) IU/L Total Protein 7.6 (6.1-8.0) g/dL Albumin 4.0 (3.5-4.8) g/dL Globulin 3.6 (2.50-4.10) g/dL Albumin/Globulin Ratio 1.10 L (1.3-2.0) mg/g Ur Collection Type Void Urine Color Yellow Urine Clarity Clear (CLEAR) Urine pH 5.0 (5.0-8.5) Ur Specific Calhan 1.015 (1.005-1.030) Urine Protein Negative (NEG) mg/dl Urine Glucose (UA) >=1000 (NEG) mg/dL Urine Ketones 15 (NEG) Urine Occult Blood Negative (NEG) Urine Nitrate Negative (NEG) Urine Bilirubin Small (NEG) Urine Urobilinogen 0.2 (0.2) EU/dL Ur Leukocyte Esterase Negative (NEG) Ur Culture Indicated? Culture not set EKG Interpreted/Reviewed By Me:: Yes - Patient's Progress MDM / ED Course: Patient was admitted to the emergency department he had an NG tube placed and has had significant potential amounts of coffee-ground emesis aspirated from his stomach. He had typical labs done which did show a bit of a drop in his hemoglobin from previous tests. He had acute abdominal series which showed possible small bowel obstruction. CT scan of the abdomen and pelvis was performed this does show a small bowel obstruction though there is no official radiology over read at this point. He continues to have a fairly substantial amount of black drainage and has dropped his hemoglobin another point over last couple of hours. I discussed his case with general surgeon metal furniture polisher and district court judge at [facility] [place] they recommended transfer through the emergency department at [facility] for triage whether the patient needs to go to the floor versus the ICU. Patient was given IV fluid boluses and IV PPI therapy otherwise no substantial medication was administered.. Patient Care Time - Estimated PCT Patient Care Time (In Minutes): 45 Vital Signs - Recent Vital Signs Vital Signs: Vital Signs (Last 8 hours) Temp Pulse Pulse Pulse Resp BP BP 12/29/16 20:47 119 H 116/72 12/29/16 20:00 126 H 119/51 12/29/16 19:31 97.1 F 118 H 20 104/64 12/29/16 18:48 119 H 104/62 12/29/16 18:18 126 H 20 117/68 12/29/16 16:09 95.9 F L 129 H 16 129/77 12/29/16 16:00 130 H 143 H 115/77 BP Pulse Ox 12/29/16 20:47 12/29/16 20:00 12/29/16 19:31 94 12/29/16 18:48 12/29/16 18:18 93 12/29/16 16:09 94 12/29/16 16:00 50/32 - VS Reviewed Vital Signs Reviewed: Yes Discharge Clinical Impression: Intestinal obstruction Qualifiers: Intestinal obstruction type: unspecified Qualifier Code: (K56.60) Unspecified intestinal obstruction Gastrointestinal hemorrhage Qualifiers: GI bleed type/associated pathology: unspecified gastrointestinal hemorrhage type Qualifier Code: (K92.2) Gastrointestinal hemorrhage, unspecified Malignant neoplasm of lung Qualifiers: Lung location: unspecified part of lung Discharge Disposition: Transferred to Tertiary Care Facility Condition: Serious Date Decision to Transfer to Another Facility: 12/29/16 Time Decision to Transfer to Another Facility: 21:18
[2016-12-29 17:36] LABS: CLARITY,URINE CLEAR (CLEAR); COLOR,URINE YELLOW; PROTEIN,URINE NEGATIVE (NEG); URINE SAMPLE TYPE VOID
[2016-12-29 17:37] LABS: BILIRUBIN,URINE SMALL (NEG); NITRATE,URINE NEGATIVE (NEG); OCCULT BLOOD,URINE NEGATIVE (NEG); UROBILINOGEN,URINE 0.2 EU/dL (0.2)
[2016-12-29 17:39] LABS: GLUCOSE, URINE (UA) >=1000 mg/dL (NEG)
--- NOTE | 2016-12-29 17:52 | DI ---
HISTORY: Feculent vomiting. FINDINGS: Examination reveals multiple air filled distended loops of mostly small bowel with air/fl uid levels and no free air in the peritoneal cavity, probably due to mechanical bowel obstruction. The heart is within normal limits with slight tortuosity of the dorsal aorta. There is an area of i ncreased density in the right hilar region with bands of subsegmental atelectases which requires furt her investigation to exclude possible malignancy. The lung ambriz are otherwise essentially clear. IMPRESSION: 1. Probable mechanical bowel obstruction. Clinical correlation and follow up examination is suggeste d to exclude possible adynamic ileus. 2. Increased right hilar density with bands of subsegmental atelectasis. The findings require furthe r evaluation to exclude possible malignancy. Clinical correlation is requested.
--- NOTE | 2016-12-29 19:15 | DI ---
HISTORY: Hematemesis. Stage IV lung cancer. TECHNIQUE: Contrast enhanced images of the abdomen and pelvis were obtained and submitted for interp retation. FINDINGS: Limited sections of the lung bases demonstrate bibasilar ill-defined ground glass opacitie s. There is a tiny nodule in the periphery of the left lung on series 2 image 15 measuring 5 mm. There are multiple nodules throughout the liver reminiscent of metastatic disease. The spleen is aaron ssly unremarkable. There are gallstones. The pancreas is atrophied. There is an NG tube noted. The distal esophagus is thickened. Both kidneys enhance symmetrically. There is bilateral perinephric edema. There is a subcentimeter calculus in the lower pole of the left kidney. The aorta and IVC demonstrate no acute findings. There is atherosclerotic calcification of the aorta . There is moderate to severe constipation. There is thickening of the sigmoid colon. The large bowel is collapsed. There is a normal-appearing appendix. The small bowel loops appear thickened and dilated. The point of transition is not clearly identifie d. There is an irregular masslike lesion measuring approximately 5.6 cm along the left mid mesentery which could represent a point of transition. There are multiple enlarged mesenteric nodes. There is no free air to suggest perforation. There is thickening of the omentum suggestive of carcin omatosis peritonei. There is free fluid within the pelvis. Urinary bladder is distended. The prostate gland is slightly prominent. Scattered sclerotic foci favored to represent bone islands although bone metastases not excluded. Th ere is narrowing at L5-S1 with vacuum phenomenon. There is endplate sclerosis at L2-3. IMPRESSION: 1. Findings consistent with metastatic disease in the liver. 2. Cholelithiasis. Recommend ultrasound correlation. 3. Thickened, dilated small bowel loops with a point of transition not clearly identified. There is an irregular masslike lesion measuring approximately 5.6 cm along the left mid mesentery which could represent a point of transition. 4. 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 5. Slightly prominent prostate with free fluid in the pelvis. 6. Scattered sclerotic foci may represent bone islands, but bone metastasis is not excluded on the ba sis of this examination.
[2016-12-29 20:49] LABS: HEMATOCRIT 34.9 % (42.0-52.0); HEMOGLOBIN 11.6 g/dL (14.0-18.0)
[2016-12-29] MEDS ORDERED: Pantoprazole Inj 40 MG in Normal Saline Flush 10 ML IVP ONE (21:06)
[2016-12-29 22:55] VITALS: RESP 18; TEMP 98.3
== END 2016-12-29 21:38 | disposition short-term general hospital (02) ==
LOC: ER 15:55
DX: K92.2 Gastrointestinal hemorrhage, unspecified (principal); R10.84 Generalized abdominal pain; K56.69 Other intestinal obstruction; E11.9 Type 2 diabetes mellitus without complications; E78.5 Hyperlipidemia, unspecified; I10 Essential (primary) hypertension; C34.82 Malignant neoplasm of overlapping sites of left bronchus and lung; C78.7 Secondary malignant neoplasm of liver and intrahepatic bile duct; C79.2 Secondary malignant neoplasm of skin
CPT/HCPCS: 36415; 74022; 74177; 80053; 81003; 85014; 85018; 85025; 96361; 96374; 96375; 96376; 99285; J2405; J3490; J7030; J7050